=== PATIENT | male | born 1945 | race Hispanic/Latino ===

== ENCOUNTER 2017-07-05 11:55 | Emergency (ER) | payer MEDICARE ==
[2017-07-05 12:51] LABS: Basophils % (Auto) 0.4 % (0.0-1.8); Eosinophils % (Auto) 0.2 % (0.0-4.3); Hematocrit 44.3 % (35.5-45.6); Hemoglobin 15.3 gm/dl (11.8-15.2); Mean Corpuscular HGB Conc 35 % (32-34); Mean Corpuscular Hemoglobin 32 pg (28-32); Mean Corpuscular Volume 92 fl (84-94); Platelet Count 206 K/mm3 (140-440); Red Cell Distribution Width 14.2 % (13.2-15.2); White Blood Count 8.9 K/mm3 (4.5-11.0)
[2017-07-05 13:02] LABS: INR 1.13 (0.87-1.13)
[2017-07-05 13:03] LABS: Partial Thromboplastin Time 26.2 Sec. (24.2-36.6)
[2017-07-05 13:09] LABS: Anion Gap 19 mmol/L; BUN/Creatinine Ratio 17.77; Blood Urea Nitrogen 16 mg/dL (9-20); Calcium 9.4 mg/dL (8.4-10.2); Carbon Dioxide 19 mmol/L (22-30); Chloride 104.6 mmol/L (98-107); Glucose 131 mg/dL (75-100); Potassium 3.7 mmol/L (3.6-5.0); Sodium 139 mmol/L (137-145)
--- NOTE | 2017-07-05 13:28 | Emergency Department Report ---
HPI - General Chief Complaint: Syncope Time Seen by Provider: 07/05/17 12:39 - HPI HPI: This is a 71-year-old male presents to the emergency department by EMS from [place] with complaint of a near-syncopal episode just prior to presentation. The patient says that he got sweaty and dizzy and felt like he was going to pass out but says that he never did. However there is paperwork saying as if he did pass out prior to presentation. The patient is currently had [place] for what appears to be psychosis and suicidal ideations. However the patient denies these feelings and does not want to return to [place]. Patient has a past medical history of hypertension. He says that he went to [facility] for some reason but then was kept in a padded room for 10 days before being sent to [place]. He says "I am in a nut house but I am not a nut." ED Past Medical Hx - Past Medical History Hx Hypertension: Yes Hx Heart Attack/AMI: Yes Hx Psychiatric Treatment: Yes (DEPRESSION?) - Surgical History Additional Surgical History: "NOT SURE ..MAYBE APPENDIX" - Social History Smoking Status: Former Smoker Substance Use Type: None - Medications Home Medications: Home Medications Medication Instructions Recorded Confirmed Last Taken Type Memantine HCl [Namenda] 10 mg PO DAILY 07/05/17 07/05/17 07/05/17 History cloNIDine [Catapres] 0.2 mg PO DAILY 07/05/17 07/05/17 07/05/17 History hydrALAZINE [Apresoline TAB] 10 mg PO DAILY 07/05/17 07/05/17 07/04/17 History ED Review of Systems ROS: Stated complaint: NAUSEA Other details as noted in HPI Constitutional: weakness. denies: fever Eyes: denies: eye pain, eye discharge, vision change ENT: denies: ear pain, throat pain Respiratory: denies: cough, shortness of breath, wheezing Cardiovascular: syncope (Near syncope). denies: edema Gastrointestinal: denies: abdominal pain, nausea, diarrhea Genitourinary: denies: urgency, dysuria Musculoskeletal: denies: back pain, joint swelling, arthralgia Skin: denies: rash, lesions Neurological: other (dizziness) Physical Exam - Physical Exam Vital Signs: Vital Signs 07/05/17 12:06 Temperature 97.3 F L Pulse Rate 51 L Respiratory 18 Rate Blood Pressure 139/71 O2 Sat by Pulse 100 Oximetry Physical Exam: GENERAL: The patient is well-developed well-nourished. HEENT: Normocephalic. Atraumatic. Extraocular motions are intact. Patient has moist mucous membranes. Pupils equal reactive to light bilaterally. No nystagmus. NECK: Supple. Trachea is midline. CHEST/LUNGS: Clear to auscultation. There is no respiratory distress noted. HEART/CARDIOVASCULAR: Regular. There is no tachycardia. There is no gallop rub or murmur. ABDOMEN: Abdomen is soft, nontender. Patient has normal bowel sounds. There is no abdominal distention. SKIN: Skin is warm and dry. NEURO: The patient is awake, alert. The patient is cooperative. The patient has no focal neurologic deficits. The patient has normal speech. Cranial nerves II-12 grossly intact. MUSCULOSKELETAL: There is no tenderness or deformity. There is no limitation range of motion. There is no evidence of acute injury. ED Course Vital Signs 07/05/17 12:06 Temperature 97.3 F L Pulse Rate 51 L Respiratory 18 Rate Blood Pressure 139/71 O2 Sat by Pulse 100 Oximetry ED Medical Decision Making - Lab Data Result diagrams: 07/05/17 12:32 07/05/17 12:32 - EKG Data -: EKG Interpreted by Me EKG shows normal: sinus rhythm, axis (AD), intervals, QRS complexes (LVH), ST-T waves Rate: bradycardia (48 bpm) - EKG Data When compared to previous EKG there are: previous EKG unavailable Interpretation: other (sinus rhythm, bradycardia at 48 bpm, left axis deviation , LVH) - Radiology Data Radiology results: image reviewed interpreted by me: Chest x-ray did not show any acute process. Heart is normal shape and size. No effusions. No pneumothorax. No signs of pneumonia seen. - Medical Decision Making 71-year-old male presents to the emergency department from [place] with the complaint of having an episode where he got dizzy, lightheaded and almost passed out. He denies having any loss of consciousness or a full syncopal episode. EKG does not show any signs of ST elevation NV. There was some bradycardia on the EKG but that has resolved throughout his ED course. Labs are mostly unremarkable including negative troponins 2. Chest x-ray does not show any acute process. There is been no further episodes of passing out, seizure-like activity and the patient does not currently feel dizzy or lightheaded and denies any chest pain and any point. From this reason patient appears safe for discharge back to [place]. The patient does not want to go back to [place] but he is a 1013 from prior psychosis and/or suicidal ideations. The patient mentioned that he would harm himself and he had to go back to [place] but [place] has been contacted about this and say they will place him as a 1-1 there. - Differential Diagnosis TIA, NV, orthostatic hypotension, vasovagal Critical Care Time: No Critical care attestation.: If time is entered above; I have spent that time in minutes in the direct care of this critically ill patient, excluding procedure time. ED Disposition Clinical Impression: Near syncope, Dizziness Hypertension Qualifiers: Hypertension type: essential hypertension Qualified Code(s): I10 - Essential ( primary) hypertension Disposition: DC/TX-65 PSY HOSP/PSY UNIT Is pt being admited?: No Condition: Stable Instructions: Hypertension (ED), Near Syncope (ED), Lightheadedness (ED), Dizziness (ED) Additional Instructions: Please follow-up with your primary care physician once you're able to do so. Return to the emergency department with any worsening of your symptoms or any acute distress. Referrals: PRIMARY CARE, [Primary Care Provider] - [facility] Time of Disposition: 16:17
--- NOTE | 2017-07-05 13:33 | XRay Report ---
PORTABLE CHEST: Chest pain. An AP portable view of the chest demonstrates a normal cardiac contour considering the limits of this technique. The lungs are clear with no evidence of infiltrate, fluid or failure. IMPRESSION: Normal portable chest.
[2017-07-05 17:28] VITALS: BP 147/71
== END 2017-07-05 18:30 ==
LOC: ED 11:55
DX: I10 Essential (primary) hypertension (principal); R55 Syncope and collapse; R42 Dizziness and giddiness; I25.2 Old myocardial infarction; Z87.891 Personal history of nicotine dependence
CPT/HCPCS: 36415; 71010; 80048; 84443; 84484; 85025; 85610; 85730; 93005; 93010